=== PATIENT | male | born 2000 | race American Indian/Alaskan Native ===

== ENCOUNTER 2019-06-26 09:52 | Emergency (ER) | payer OTHER ==
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
[2019-06-26] MEDS ORDERED: IBUPROFEN 800 MG TAB PO ONE (16:16)
[2019-06-26 16:46] VITALS: BP 116/79
== END 2019-06-26 16:47 | disposition home or self-care (01) ==
LOC: ED 09:52
DX: M54.2 Cervicalgia (principal); R51 Headache; F10.10 Alcohol abuse, uncomplicated; Z79.899 Other long term (current) drug therapy; V49.59XA Passenger injured in collision with other motor vehicles in traffic accident, initial encounter; Y93.89 Activity, other specified; Y92.410 Unspecified street and highway as the place of occurrence of the external cause; Y99.8 Other external cause status